=== PATIENT | male | born 1975 | race Caucasian/White ===

== ENCOUNTER 2024-08-07 14:21 | Emergency (ER) | payer BC, MEDICARE ==
--- OUTSIDE RECORDS SUMMARY | 2024-08-07 14:24 | XMS REPORT | Continuity of Care Document ---
Author Name Unknown Address [address] [facility] [place]. [address] [place] [address] 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 Name Role Phone Shayla Valles Attending Clinician Unavailable Maria Ines Diaz Attending Clinician Unavailable Payers Payer Name Policy Type Policy Number Effective Date Expirati on Date Source [place] [address] [id number] 2014 00:00:00 [facility] Problems Condition Name Condition Details Condition Category Status Onset Date Resolution Date Last Treatment Date Treating Clinician Comments Source [id number] Encounter for general adult medical examinatio n without abnormal findings Problem [facility] [id number] Lesion of skin of nose Problem [facility] Nasal sinus problem (finding) Sinus problem Problem [facility] [id number] Cigarette nicotine dependence without complicati on Problem [facility] [id number] Hospital discharge follow-up Problem [facility] Acquired hypothyroi dism Acquired hypothyroi dism Problem [facility] Gastroesop hageal reflux disease Reflux Problem [facility] [id number] Difficulty sleeping Problem [facility] Allergic rhinitis Allergic rhinitis, unspecifie d Problem [facility] [id number] Obesity (BMI 30-39.9) Problem [facility] [id number] Essential hypertensi on Problem [facility] [id number] Hyperlipid emia, unspecifie d hyperlipid emia type Problem [facility] [id number] Pulmonary nodules Problem [facility] Social History Social Habit Start Date Stop Date Quantity Comments Source History of Tobacco Use Current Smoker [facility] Sex Assigned At [facility] Smoking Status Start Date Stop Date Source Current Smoker 2024-02-14 00:00:00 [facility] Medications Ordered Medication Name Filled Medication Name Start Date Stop Date Current Medication? Ordering Clinician Indication Dosage Frequency Signature (SIG) Comments Components Source Pravastatin Sodium 20 MG Pravastatin Sodium 20 MG No 1{table t} QD Pravastati n Sodium 20 MG traZODone HCl 50 MG traZODone HCl 50 MG No 1{table t_at_be dtime_a s_neede d} QD traZODone HCl 50 MG Levothyroxi ne Sodium 75 MCG Levothyroxi ne Sodium 75 MCG No QD Levothyrox ine Sodium 75 MCG Irbesartan 300 MG Irbesartan 300 MG No 1{table t} QD Irbesartan 300 MG Immunizations Ordered Immunization Name Filled Immunization Name Date Status Comments Source Adacel (Tdap) Adacel (Tdap) 2018-07-22 17:00:00 Completed [facility] Adacel (Tdap) Adacel (Tdap) 2018-07-22 17:00:00 Completed [facility] Adacel (Tdap) Adacel (Tdap) 2018-07-22 17:00:00 Completed [facility] Adacel (Tdap) Adacel (Tdap) 2018-07-22 17:00:00 Completed [facility] Adacel (Tdap) Adacel (Tdap) 2018-07-22 17:00:00 Completed [facility] Adacel (Tdap) Adacel (Tdap) 2018-07-22 17:00:00 Completed [facility] Adacel (Tdap) Adacel (Tdap) Unknown Completed Co on [facility] Adacel (Tdap) Adacel (Tdap) Unknown Completed Co on [facility] Adacel (Tdap) Adacel (Tdap) Unknown Completed Co on [facility] Adacel (Tdap) Adacel (Tdap) Unknown Completed Co [facility] Adacel (Tdap) Adacel (Tdap) Unknown Completed Co [facility] Vital Signs Vital Name Observation Time Observation Value Comments S ource height 2024-02-14 08:00:00 72.25 [in_i] Com [facility] weight 2024-02-14 08:00:00 255.4 [lb_av] Co [facility] temperature 2024-02-14 08:00:00 98.4 [degF] Com [facility] bmi 2024-02-14 08:00:00 34.4 kg/m2 Commo n [facility] oximetry 2024-02-14 08:00:00 98 % Commo n [facility] respiratory rate 2024-02-14 08:00:00 16 /min [facility] blood pressure systolic 2024-02-14 08:00:00 136 mm[Hg] [facility] blood pressure diastolic 2024-02-14 08:00:00 88 mm[Hg] [facility] height 2024-02-14 08:00:00 72.25 [in_i] Com [facility] weight 2024-02-14 08:00:00 255.4 [lb_av] Co [facility] temperature 2024-02-14 08:00:00 98.4 [degF] Com [facility] bmi 2024-02-14 08:00:00 34.4 kg/m2 Commo n [facility] oximetry 2024-02-14 08:00:00 98 % Commo n [facility] respiratory rate 2024-02-14 08:00:00 16 /min Common [facility] blood pressure systolic 2024-02-14 08:00:00 136 mm[Hg] [facility] blood pressure diastolic 2024-02-14 08:00:00 88 mm[Hg] [facility] height 2023-08-15 08:00:00 72.25 [in_i] Com [facility] weight 2023-08-15 08:00:00 248.4 [lb_av] Co mmon [facility] temperature 2023-08-15 08:00:00 97.8 [degF] Com [facility] bmi 2023-08-15 08:00:00 33.45 kg/m2 Comm on [facility] oximetry 2023-08-15 08:00:00 95 % Commo n [facility] respiratory rate 2023-08-15 08:00:00 16 /min [facility] blood pressure systolic 2023-08-15 08:00:00 136 mm[Hg] [facility] blood pressure diastolic 2023-08-15 08:00:00 74 mm[Hg] Common [facility] height 2023-02-13 08:00:00 72.25 [in_i] Com [facility] weight 2023-02-13 08:00:00 246.8 [lb_av] Co mmon [facility] temperature 2023-02-13 08:00:00 97.3 [degF] Com [facility] bmi 2023-02-13 08:00:00 33.24 kg/m2 Comm on [facility] oximetry 2023-02-13 08:00:00 97 % Commo n [facility] respiratory rate 2023-02-13 08:00:00 16 /min [facility] blood pressure systolic 2023-02-13 08:00:00 135 mm[Hg] [facility] blood pressure diastolic 2023-02-13 08:00:00 84 mm[Hg] [facility] height 2023-01-10 16:40:00 72.25 [in_i] Com [facility] weight 2023-01-10 16:40:00 254.2 [lb_av] Co mmon [facility] temperature 2023-01-10 16:40:00 97.3 [degF] Com [facility] bmi 2023-01-10 16:40:00 34.23 kg/m2 Comm on [facility] oximetry 2023-01-10 16:40:00 96 % Commo n [facility] respiratory rate 2023-01-10 16:40:00 16 /min [facility] blood pressure systolic 2023-01-10 16:40:00 132 mm[Hg] [facility] blood pressure diastolic 2023-01-10 16:40:00 78 mm[Hg] [facility] height 2022-08-15 08:00:00 72.25 [in_i] Com [facility] weight 2022-08-15 08:00:00 253.8 [lb_av] Co mmon [facility] temperature 2022-08-15 08:00:00 97.3 [degF] Com [facility] bmi 2022-08-15 08:00:00 34.18 kg/m2 Comm on [facility] oximetry 2022-08-15 08:00:00 98 % Commo n [facility] respiratory rate 2022-08-15 08:00:00 16 /min [facility] blood pressure systolic 2022-08-15 08:00:00 130 mm[Hg] [facility] blood pressure diastolic 2022-08-15 08:00:00 82 mm[Hg] Common [facility] height 2022-02-13 08:00:00 72.25 [in_i] Com [facility] weight 2022-02-13 08:00:00 248.2 [lb_av] Co [facility] temperature 2022-02-13 08:00:00 98.2 [degF] Com [facility] bmi 2022-02-13 08:00:00 33.43 kg/m2 Comm on [facility] oximetry 2022-02-13 08:00:00 98 % Commo n [facility] respiratory rate 2022-02-13 08:00:00 18 /min Common [facility] blood pressure systolic 2022-02-13 08:00:00 120 mm[Hg] [facility] blood pressure diastolic 2022-02-13 08:00:00 82 mm[Hg] Common [facility] height 2021-08-16 08:40:00 72.25 [in_i] Com [facility] weight 2021-08-16 08:40:00 254.0 [lb_av] Co [facility] temperature 2021-08-16 08:40:00 98.1 [degF] Com [facility] bmi 2021-08-16 08:40:00 34.21 kg/m2 Comm on [facility] oximetry 2021-08-16 08:40:00 98 % Commo n [facility] respiratory rate 2021-08-16 08:40:00 18 /min Common [facility] blood pressure systolic 2021-08-16 08:40:00 138 mm[Hg] Common [facility] blood pressure diastolic 2021-08-16 08:40:00 84 mm[Hg] [facility] Encounters Start Date/Time End Date/Time Encounter Type Admission Type Attending Clinicians Care Facility Care Department Encounter ID Source 2024-02-12 08:08:00 Outpatient [place], Shayla STELAINE [facility] [id number] [facility] 2023-08-09 09:02:00 Outpatient Shayla Valles STKYLELC [facility] [id number] [facility] 2022-08-15 07:33:00 Outpatient Shayla Valles [facility]LMLC [facility] [id number] [facility] 2022-02-09 07:56:00 Outpatient Shayla Valles STLMLC [facility] [id number] [facility] 2021-09-14 13:52:25 Outpatient Shayla Valles [facility] [id number] [facility] 2021-09-14 13:16:40 Outpatient Shayla Valles STLMLC [facility] [id number] [facility] 2021-09-14 12:19:28 Outpatient [facility] [id number] [facility] 2021-09-14 12:12:45 Outpatient [facility] [id number] [facility] 2021-09-14 11:27:38 Outpatient Maria Ines Diaz STLMLC [facility] [id number] [facility] 2021-09-14 11:04:36 Outpatient Maria Ines Diaz STLMLC ST[facility] [id number] [facility] 2021-09-14 10:58:12 Outpatient Maria Ines Diaz [facility] [id number] [facility] 2021-09-14 10:57:59 Outpatient Shayla Valles STLMLC [facility] [id number] [facility] 2024-02-14 00:00:00 2024-02-14 00:00:00 OFFICE VISIT ESTAB PT LEVEL 3 [facility] [id number] [facility] 2023-09-07 00:00:00 2023-09-07 00:00:00 (TEL) [facility]C [facility] [id number] [facility] 2023-08-15 00:00:00 2023-08-15 00:00:00 (WELLNESS) Wellness Visit [facility] [id number] [facility] 2023-02-13 00:00:00 2023-02-13 00:00:00 OFFICE VISIT ESTAB PT LEVEL 3 [facility] [id number] [facility] 2023-01-10 00:00:00 2023-01-10 00:00:00 OFFICE VISIT ESTAB PT LEVEL 3 [facility] ST[facility] [id number] [facility] 2022-08-15 00:00:00 2022-08-15 00:00:00 PREV VISIT EST AGE 40-64 STLMLC ST[facility]C [id number] [facility] 2022-07-05 00:00:00 2022-07-05 00:00:00 (TEL) STLMLC ST[facility] [id number] [facility] 2022-07-04 00:00:00 2022-07-04 00:00:00 (TEL) STLMLC [facility] [id number] [facility] 2022-06-16 00:00:00 2022-06-16 00:00:00 (TEL) STLMLC ST[facility]C [id number] [facility] 2022-03-20 00:00:00 2022-03-20 00:00:00 (TEL) STLMLC ST[facility] [id number] [facility] 2022-03-14 00:00:00 2022-03-14 00:00:00 (TEL) STLMLC [facility] [id number] [facility] 2022-02-28 00:00:00 2022-02-28 00:00:00 (TEL) STLMLC ST[facility] [id number] [facility] 2022-02-13 00:00:2022-02-13 00:00:00 OFFICE VISIT EST PT LEVEL 3 [facility] ST[facility] [id number] [facility] 2021-09-23 00:00:00 2021-09-23 00:00:00 (TEL) STL[facility]C [facility] [id number] [facility] 2021-08-16 00:00:00 2021-08-16 00:00:00 OFFICE VISIT EST PT LEVEL 3 [facility] [id number] [facility] 2021-05-20 00:00:00 2021-05-20 00:00:00 (TEL) [facility]C [facility] [id number] [facility] 2021-05-11 00:00:00 2021-05-11 00:00:00 (TEL) STL[facility]C [facility] [id number] [facility] 2021-02-11 00:00:00 2021-02-11 00:00:00 Outpatient [facility] [id number] [facility] 2020-11-09 00:00:00 2020-11-09 00:00:00 Outpatient [facility] [id number] [facility] 2020-10-14 00:00:00 2020-10-14 00:00:00 Outpatient [facility] [id number] [facility] 2020-08-27 00:00:00 2020-08-27 00:00:00 Outpatient [facility] [id number] [facility] 2020-05-07 00:00:00 2020-05-07 00:00:00 Outpatient [facility] [id number] [facility] 2020-02-09 08:00:00 2020-02-09 08:00:00 Outpatient [facility] [id number] [facility] 2019-09-24 09:57:00 2019-09-24 09:57:00 Outpatient [facility] [id number] [facility] 2019-09-19 10:20:00 2019-09-19 10:20:[address] [facility] [id number] [facility] 2019-08-26 10:00:00 2019-08-26 10:00:00 [facility] [id number] [facility] 2019-08-04 16:00:00 2019-08-04 16:00:[address] [facility] [id number] [facility] 2019-07-03 16:25:00 2019-07-03 16:25:[address] [facility] [facility] [id number] [facility] 2019-04-07 11:00:00 2019-04-07 11:00:00 [facility] [id number] [facility] 2019-02-24 16:08:00 2019-02-24 16:08:00 [facility] [facility] [id number] [facility] 2019-01-30 09:00:00 2019-01-30 09:00:00 [facility] [id number] [facility] 2018-03-20 18:12:00 2018-03-20 18:12:00 [facility] [id number] [facility] 2018-01-16 09:30:00 2018-01-16 09:30:[address] [facility] [facility] [id number] [facility] Results Test Description Test Time Test Comments Results Result Co mments Source TSH REFLEX TO FREE [id number] 00:00:00* Test Item Value Reference Range Interpretation Comme nts TSH REFLEX TO FREE T4 (test code = 33130-2) 3.150 UIU/ML See_Comment [Automated messa ge] The system which generated this result transmitted reference range: 0.400-4.100 UIU/ML. The reference range was not used to interpret this result as normal/abnormal.
[2024-08-07 15:23] LABS: Absolute Basophils 0.1 K/uL (0-0.5); Absolute Eosinophils 0.2 K/uL (0-0.5); Absolute Lymphocytes (CBC) 1.9 K/uL (0.7-4.9); Absolute Monocytes 0.9 K/uL (0.1-1.3); Absolute Neutrophil 9.1 K/uL (1.8-8.0); Basophils % 0.7 % (0-1.3); Hematocrit 48.7 % (39.6-49.0); Hemoglobin 16.5 g/dL (13.6-17.9); Lymphocytes % 15.4 % (15.3-44.8); MCH 32.4 pg (27.0-35.0); MCHC 33.8 g/dL (32.0-36.0); MCV 95.7 fL (80-100); MPV 7.7 fL (7.6-11.3); Monocytes % 7.4 % (3.3-12.3); Neutrophils % 74.5 % (41.7-73.7); Platelets 280 thou/uL (152-406); RBC Red Blood Cell Count 5.08 M/uL (4.33-5.43); Red Cell Distribution Width 13.1 % (12.1-15.2)
[2024-08-07 15:26] LABS: PT Prothrombin Time 11.8 SECONDS (9.4-12.5); Protime INR 1.06
[2024-08-07 15:46] LABS: ALT/SGPT 24 U/L (16-61); AST/SGOT 14 U/L (15-37); Albumin 3.3 g/dL (3.4-5.0); Albumin/Globulin Ratio 0.8 (1.1-1.8); Alkaline Phosphatase 64 U/L (45-117); Anion Gap 9.9 mEq/L (5.0-15.0); BUN Blood Urea Nitrogen 8 mg/dL (7-18); Bicarbonate 25 mEq/L (21-32); Bilirubin Total 0.5 mg/dL (0.2-1.0); Globulin 3.9 g/dL (2.3-3.5); Glomerular Filtration Rate 112 ml/min (=/>90); Glucose Level 85 mg/dL (74-106); Magnesium 1.7 mg/dL (1.6-2.4); NT PRO-BNP 49 pg/mL (<125); Potassium 3.9 mEq/L (3.5-5.1); Protein, Total 7.2 g/dL (6.4-8.2); Sodium Level 136 mEq/L (136-145); Troponin High Sensitivity 5.9 pg/mL (<58.9)
[2024-08-07 16:00] LABS: Bilirubin Direct < 0.2 mg/dL (0-0.2); Bilirubin Indirect, Calculated 0.3 mg/dL (0.2-0.8)
--- NOTE | 2024-08-07 16:03 | RAD REPORT ---
Procedure: Chest Single View HISTORY: Cough COMPARISON: 2018 FINDINGS: The lungs appear clear of acute infiltrate. No significant pleural effusion noted. The heart is normal size. IMPRESSION: No acute abnormality is displayed.
[2024-08-07] MEDS ORDERED: NITROGLYCERIN 0.4 MG/TAB SL ONE (17:28)
--- NOTE | 2024-08-07 17:52 | EDPHYS ---
Physician Documentation [facility] Name: Cedrick Gerber Age: 48 yrs Sex: Male : 1975 Arrival Date: 08/07/2024 Time: 14:21 Bed 7 Private MD: ED Physician Erika Dickson HPI: 08/07 15:09 This 48 yrs old Male presents to ER via Ambulatory with complaints of Chest Pain. sp3 15:09 48-year-old male with history of hypertension, hyperlipidemia presents to the ED with sp3 chief complaint chest pain for the last 48 hours waxing and waning in nature substernal coupled with anxiety and bilateral hand tingling. All symptoms are currently not present. Patient denies any headache, trauma, neck pain, shortness of breath, back pain, abdominal pain, nausea, vomiting, diarrhea, syncope, near syncope, rash, bleeding, known sick contacts, travel history, prolonged immobilization, or any other signs or symptoms on ROS at this time.. Historical: - Allergies: 14:35 No Known Allergies; db - PMHx: 14:35 Hyperlipidemia; Thyroid problem; Hypertension; acid reflux; db - PSHx: 14:35 None; db - Immunization history:: Adult Immunizations unknown. - Infectious Disease History:: Denies. - Social history:: Smoking status: Patient reports the use of cigarette tobacco products, cigars, Patient reports use of chewing tobacco. ROS: 15:09 Constitutional: Negative for fever, chills, and weight loss, Eyes: Negative for injury, sp3 pain, redness, and discharge, ENT: Negative for injury, pain, and discharge, Neck: Negative for injury, pain, and swelling, Respiratory: Negative for shortness of breath, cough, wheezing, and pleuritic chest pain, Abdomen/GI: Negative for abdominal pain, nausea, vomiting, diarrhea, and constipation, Back: Negative for injury and pain, MS/Extremity: Negative for injury and deformity, Skin: Negative for injury, rash, and discoloration, Neuro: Negative for headache, weakness, numbness, tingling, and seizure, Psych: Negative for depression, anxiety, suicide ideation, homicidal ideation, and hallucinations, Allergy/Immunology: Negative for hives, rash, and allergies, Endocrine: Negative for neck swelling, polydipsia, polyuria, polyphagia, and marked weight changes, Hematologic/Lymphatic: Negative for swollen nodes, abnormal bleeding, and unusual bruising, 15:09 All other systems are negative, Exam: 15:10 Constitutional: This is a well developed, well nourished patient who is awake, alert, sp3 and in no acute distress. Head/Face: Normocephalic, atraumatic. Eyes: Pupils equal round and reactive to light, extra-ocular motions intact. Lids and lashes normal. Conjunctiva and sclera are non-icteric and not injected. Cornea within normal limits. Periorbital areas with no swelling, redness, or edema. ENT: Nares patent. No nasal discharge, no septal abnormalities noted. External auditory canals are clear. Oropharynx with no redness, swelling, or masses, exudates, or evidence of obstruction, uvula midline. Mucous membranes moist. Neck: Trachea midline, no thyromegaly or masses palpated, and no cervical lymphadenopathy. Supple, full range of motion without nuchal rigidity, or vertebral point tenderness. No Meningismus. Chest/axilla: Normal chest wall appearance and motion. Nontender with no deformity. No lesions are appreciated. Cardiovascular: Regular rate and rhythm with a normal S1 and S2. No gallops, murmurs, or rubs. Normal PMI, no JVD. No pulse deficits. Respiratory: Lungs have equal breath sounds bilaterally, clear to auscultation and percussion. No rales, rhonchi or wheezes noted. No increased work of breathing, no retractions or nasal flaring. Abdomen/GI: Soft, non-tender, with normal bowel sounds. No distension or tympany. No guarding or rebound. No evidence of tenderness throughout. Back: No spinal tenderness. No costovertebral tenderness. Full range of motion. Skin: Warm, dry with normal turgor. Normal color with no rashes, no lesions, and no evidence of cellulitis. MS/ Extremity: Pulses equal, no cyanosis. Neurovascular intact. Full, normal range of motion. Neuro: Awake and alert, GCS 15, oriented to person, place, time, and situation. Cranial nerves II-XII grossly intact. Motor strength 5/5 in all extremities. Sensory grossly intact. Cerebellar exam normal. Normal gait. Psych: Awake, alert, with orientation to person, place and time. Behavior, mood, and affect are within normal limits. 15:10 ECG was reviewed by the Attending Physician. EKG demonstrates normal sinus rhythm at 90 bpm with normal intervals, normal QRS, normal axis, nonspecific diffuse ST/T changes with isolated Q waves in lead III without evidence of acute ischemia. Vital Signs: 14:34 BP 166 / 110; Pulse 84; Resp 18; Temp 98.5; Pulse Ox 97% ; Weight 113.4 kg; Height 6 db ft. 1 in. ; Pain 6/10; 15:26 BP 142 / 96; Pulse 84; Pulse Ox 99% on R/A; MAP 109 mmHg; Pain 6/10; tm6 16:30 BP 137 / 97; Pulse 83; Pulse Ox 95% on R/A; MAP 107 mmHg; tm6 17:38 BP 151 / 97; Pulse 84; Pulse Ox 96% on R/A; MAP 110 mmHg; Pain 7/10; tm6 18:03 BP 152 / 96; Pulse 83; Resp 17; Pulse Ox 96% on R/A; Pain 6/10; ll1 14:34 Body Mass Index 32.98 (113.40 kg, 185.42 cm) db 14:34 Pain Scale: Adult db 15:26 Pain Scale: Adult tm6 17:38 Pain Scale: Adult tm6 18:03 Pain Scale: Adult ll1 MDM: 14:34 Medical Screening Exam initiated sp3 15:10 Data reviewed: vital signs, nurses notes, old medical records, lab test result(s), EKG, sp3 radiologic studies. ED course: 48-year-old male with chest pain. Negative workup in 2019 including cardiology visit/stress test. No catheterization was ever performed. Today's chest pain could represent acute coronary syndrome, anxiety, musculoskeletal pain, among others. I am not highly suspicious for aortic pathology, PE, pneumonia, pleurisy, or any other concerning process. Initial EKG demonstrates no significant abnormality. Will obtain 2 sets of cardiac markers and if patient continues to be in low risk heart score, will discharge home with cardiology follow-up. Patient understands the need for follow-up and he states he will similar to his last episode.. 17:49 ED course: Patient had a mild episode of recurrent pain for which nitro was given which sp3 had no benefit. This coupled with 2 negative troponins I believe patient's pain is not cardiac. Second EKG demonstrates normal EKG with heart rate 92. Heart score low and follow-up will be to Dr. Degroot for outpatient workup. I have clearly told patient to return for any worsening or concerning symptoms.. 08/07 14:34 Order name: Basic Metabolic Panel; Complete Time: 16:09 3 08/07 14:34 Order name: CBC with Diff; Complete Time: 16:09 3 08/07 14:34 Order name: LFT's; Complete Time: 16:09 08/07 14:34 Order name: Magnesium; Complete Time: 16:09 08/07 14:34 Order name: NT PRO-BNP; Complete Time: 16:09 08/07 14:34 Order name: PT-INR; Complete Time: 16:09 08/07 14:34 Order name: Troponin HS; Complete Time: 16: 08/07 14:54 Order name: Troponin High Sensitivity: Draw 2 hours after first; Complete Time: 17:45 3 08/07 14:34 Order name: XRAY Chest (1 view); Complete Time: 16:09 [facility] 08/07 14:34 Order name: Cardiac monitoring; Complete Time: 15:23 3 08/07 14:34 Order name: EKG - Nurse/Tech; Complete Time: 15:23 08/07 14:34 Order name: IV Saline Lock; Complete Time: 15:23 08/07 14:34 Order name: Labs collected and sent; Complete Time: 15:23 08/07 14:34 Order name: O2 Per Protocol; Complete Time: 15:23 08/07 14:34 Order name: O2 Sat Monitoring; Complete Time: 15:23 08/07 17:24 Order name: EKG - Nurse/Tech; Complete Time: 17:38 tm6 Administered Medications: 17:38 Drug: Nitroglycerin Sublingual 0.4 mg Sublingual once Route: Sublingual; tm6 18:03 Follow up: Response: No adverse reaction; Pain is unchanged, physician notified ll1 Disposition Summary: 08/07/24 17:51 Discharge Ordered Notes: Location: Home sp3 Condition: Stable sp3 Diagnosis - Chest pain sp3 Followup: sp3 - With: Sina Degroot MD - When: Upon discharge from the Emergency Department - Reason: Recheck today's complaints Discharge Instructions: - Discharge Summary Sheet sp3 - Nonspecific Chest Pain, Adult sp3 Forms: - Medication Reconciliation Form sp3 - Antibiotic Education sp3 - Prescription Opioid Use sp3 - Patient Portal Instructions sp3 - Leadership Thank You Letter sp3 Signatures: Dispatcher [employer] EDErika Gutierrez MD MD sp3 Sara Mo, RN RN db Sarah Kuhn RN RN tm6 Nisreen Holden RN ll1 Corrections: (The following items were deleted from the chart) 14:35 14:35 Chest Single View+RAD.[email or web address].[email or web address] ordered. EDMS EDMS
--- NOTE | 2024-08-07 17:52 | ER ---
Nurse's Notes [facility] Name: Cedrick Gerber Age: 48 yrs Sex: Male : 1975 Arrival Date: 08/07/2024 Time: 14:21 Bed 7 Private MD: Diagnosis: Chest pain Presentation: 08/07 14:34 Chief complaint: Patient states: CHEST PAIN STARTED THIS AM WOKE UP WITH PAIN. db Coronavirus screen: Client denies travel out of the [place] in the last 14 days. At this time, the client does not indicate any symptoms associated with coronavirus-19. Ebola Screen: Patient negative for fever greater than or equal to 101.5 degrees Fahrenheit, and additional compatible Ebola Virus Disease symptoms Patient denies exposure to infectious person. Patient denies travel to an Ebola-affected area in the 21 days before illness onset. No symptoms or risks identified at this time. Initial Sepsis Screen: Does the patient meet any 2 criteria? No. Patient's initial sepsis screen is negative. Does the patient have a suspected source of infection? No. Patient's initial sepsis screen is negative. Risk Assessment: Do you want to hurt yourself or someone else? Patient reports no desire to harm self or others. Onset of symptoms was August 07, 2024. 14:34 Method Of Arrival: Ambulatory db 14:34 Acuity: JOSSIE 2 db Triage Assessment: 14:35 General: Appears in no apparent distress. comfortable, Behavior is calm, cooperative. db Pain: Complains of pain in chest. Neuro: Level of Consciousness is awake, alert, obeys commands, Oriented to person, place, time, situation. Cardiovascular: Reports chest pain. Respiratory: Airway is patent Respiratory effort is even, unlabored, Respiratory pattern is regular, symmetrical. Historical: - Allergies: 14:35 No Known Allergies; db - PMHx: 14:35 Hyperlipidemia; Thyroid problem; Hypertension; acid reflux; db - PSHx: 14:35 None; db - Immunization history:: Adult Immunizations unknown. - Infectious Disease History:: Denies. - Social history:: Smoking status: Patient reports the use of cigarette tobacco products, cigars, Patient reports use of chewing tobacco. Screenin:23 [facility] ED Fall Risk Assessment (Adult) History of falling in the last 3 months, tm6 including since admission No falls in past 3 months (0 pts) Confusion or Disorientation No (0 pts) Intoxicated or Sedated No (0 pts) Impaired Gait No (0 pts) Mobility Assist Device Used No (0 pt) Altered Elimination No (0 pt) Score/Fall Risk Level 0 - 2 = Low Risk Oriented to surroundings, Maintained a safe environment, Educated pt \T\ family on fall prevention, incl call for assistance when getting out of bed. Abuse screen: Denies threats or abuse. Denies injuries from another. Nutritional screening: No deficits noted. Tuberculosis screening: No symptoms or risk factors identified. Assessment: 15:23 General: Appears in no apparent distress. Behavior is calm, cooperative. Pain: tm6 Complains of pain in chest Pain does not radiate. Pain currently is 6 out of 10 on a pain scale. Pain began this morning. Neuro: Level of Consciousness is awake, alert, obeys commands, Oriented to person, place, time, situation, Reports paresthesias in left hand. Cardiovascular: Reports chest pain, since this morning Patient's skin is warm and dry. Respiratory: Airway is patent Respiratory effort is even, unlabored, Respiratory pattern is regular, symmetrical. GI: No signs and/or symptoms were reported involving the gastrointestinal system. Abdomen is round non-distended. : No signs and/or symptoms were reported regarding the genitourinary system. EENT: No signs and/or symptoms were reported regarding the EENT system. Derm: No signs and/or symptoms reported regarding the dermatologic system. Musculoskeletal: No signs and/or symptoms reported regarding the musculoskeletal system. 16:31 Reassessment: Patient and/or family updated on plan of care and expected duration. Pain tm6 level reassessed. Patient is alert, oriented x 3, equal unlabored respirations, skin warm/dry/pink. 17:39 Reassessment: Patient and/or family updated on plan of care and expected duration. Pain tm6 level reassessed. Patient is alert, oriented x 3, equal unlabored respirations, skin warm/dry/pink. 18:04 Reassessment: No changes from previously documented assessment. Patient and/or family ll1 updated on plan of care and expected duration. Pain level reassessed. Patient is alert, oriented x 3, equal unlabored respirations, skin warm/dry/pink. Vital Signs: 14:34 BP 166 / 110; Pulse 84; Resp 18; Temp 98.5; Pulse Ox 97% ; Weight 113.4 kg; Height 6 db ft. 1 in. ; Pain 6/10; 15:26 BP 142 / 96; Pulse 84; Pulse Ox 99% on R/A; MAP 109 mmHg; Pain 6/10; tm6 16:30 BP 137 / 97; Pulse 83; Pulse Ox 95% on R/A; MAP 107 mmHg; tm6 17:38 BP 151 / 97; Pulse 84; Pulse Ox 96% on R/A; MAP 110 mmHg; Pain 7/10; tm6 18:03 BP 152 / 96; Pulse 83; Resp 17; Pulse Ox 96% on R/A; Pain 6/10; ll1 14:34 Body Mass Index 32.98 (113.40 kg, 185.42 cm) db 14:34 Pain Scale: Adult db 15:26 Pain Scale: Adult tm6 17:38 Pain Scale: Adult tm6 18:03 Pain Scale: Adult ll1 ED Course: 14:23 Patient arrived in ED. ra3 14:23 Erika Dickson MD is Attending Physician. sp3 14:35 Triage completed. db 14:35 Arm band placed on Patient placed in an exam room. db 14:54 Sarah Kuhn, GENARO is Primary Nurse. tm6 15:12 Inserted saline lock: 20 gauge in right antecubital area, using aseptic technique. tm6 Blood collected. Flushed with 10 mL NS. 15:23 Patient has correct armband on for positive identification. Placed in gown. Bed in low tm6 position. Call light in reach. Side rails up X 1. Provided Education on: use of call quintero. Client placed on continuous cardiac and pulse oximetry monitoring. NIBP monitoring applied. monitor technician on. Pulse ox on. NIBP on. Door closed. Noise minimized. Pillow given. 15:23 EKG done, by ED staff, reviewed by Erika Dickson MD. Patient maintains SpO2 saturation tm6 greater than 95% on room air. 15:55 XRAY Chest (1 view) In Process Unspecified. EDMS 17:24 Troponin High Sensitivity: Draw 2 hours after first Sent. tm6 17:53 Sina Degroot MD is Referral Physician. sp3 18:03 No provider procedures requiring assistance completed. IV discontinued, intact, ll1 bleeding controlled, No redness/swelling at site. Pressure dressing applied. Administered Medications: 17:38 Drug: Nitroglycerin Sublingual 0.4 mg Sublingual once Route: Sublingual; tm6 18:03 Follow up: Response: No adverse reaction; Pain is unchanged, physician notified ll1 Medication: 15:23 VIS not applicable for this client. tm6 Outcome: 17:51 Discharge ordered by . sp3 18:04 Discharged to home ambulatory, ll1 18:04 Condition: stable 18:04 Discharge instructions given to patient, family, Instructed on discharge instructions, follow up and referral plans. Demonstrated understanding of instructions, follow-up care, 18:05 Patient left the ED. ll1 Signatures: Dispatcher [employer] EDMS Nisreen Holden RN RN ll1 Erika Dickson MD MD sp3 Sara Mo RN RN db Masterson, Tawney, RN RN tm6 Francia Nguyen 3
[2024-08-07 18:09] VITALS: TEMP 98.5
[2024-08-07 18:14] VITALS: O2SAT 96
[2024-08-07 18:16] VITALS: BP 152/96
--- NOTE | 2024-08-08 15:40 | EKG ---
Test Date: 2024-08-07 Test Time: 17:33:12 Heel Lift Gouger: ANIA MEASUREMENT RESULTS: Intervals: Rate: 92 NV: 170 QRSD: 78 QT: 334 QTc: 413 [place]: P: 46 NV: 170 QRS: 57 T: 46 INTERPRETIVE STATEMENTS: Normal sinus rhythm Normal ECG Compared to ECG 08/07/2024 14:41:55 No significant changes Electronically Signed On 08-08-24 15:39:43 HUMAN FACTORS ENGINEER by Dagoberto Hernandez
--- NOTE | 2024-08-11 11:11 | EKG ---
Test Date: 2024-08-07 Test Time: 14:41:55 Library Cataloging Technician: STACIE MEASUREMENT RESULTS: Intervals: Rate: 89 NH: 168 QRSD: 76 QT: 342 QTc: 416 [place]: P: 33 NH: 168 QRS: 38 T: 21 INTERPRETIVE STATEMENTS: Normal sinus rhythm Normal ECG Compared to ECG 04/03/2019 12:28:40 No significant changes Electronically Signed On 08-11-24 11:07:47 ARTIFICIAL FLY TIER by Dagoberto Hernandez
== END 2024-08-07 18:05 | disposition home or self-care (01) ==
LOC: ER 14:21
DX: R07.9 Chest pain, unspecified (principal); I10 Essential (primary) hypertension; E78.5 Hyperlipidemia, unspecified; F17.210 Nicotine dependence, cigarettes, uncomplicated; F17.220 Nicotine dependence, chewing tobacco, uncomplicated
CPT/HCPCS: 36415; 71045; 80048; 80076; 83735; 83880; 84484; 85025; 85610; 93005; 99284